=== PATIENT | male | born 1985 | race African-American/Black ===

== ENCOUNTER 2021-01-02 13:44 | Emergency (ER) | payer MEDICAID, OTHER ==
[~2021-01-02] VITALS: Ht 175.3 cm; Wt 81.8 kg
[2021-01-02 14:45] VITALS: BP 130/92
[2021-01-02] MEDS: IBUPROFEN 600 MG TABLET PO ONE (15:45)
[2021-01-02] MEDS: ACETAMINOPHEN 500 MG TABLET PO ONE (15:45)
== END 2021-01-02 17:00 | disposition home or self-care (01) ==
LOC: EMS 13:44
DX: S20.211A Contusion of right front wall of thorax, initial encounter (principal); W50.0XXA Accidental hit or strike by another person, initial encounter; Y93.51 Activity, roller skating (inline) and skateboarding; Y92.89 Other specified places as the place of occurrence of the external cause; Y99.8 Other external cause status
CPT/HCPCS: 71101; 93005; 99283; 99284